=== PATIENT | female | born 1985 | race Caucasian/White ===

== ENCOUNTER 2021-03-10 08:48 | Day surgery (SDC) | payer OTHER ==
[~2021-03-10 08:48] MED LIST: HYDRODIURIL12.5 MG PO; MULTIPLE VITAM1 EAC2 PO; TYLENOL-CODEINE1 TAB PO
== END 2021-03-10 18:40 | disposition home or self-care (01) ==
LOC: CIR.AMB 08:48
PROVIDERS: ATTEND Obstetrics & Gynecology
DX: N84.0 Polyp of corpus uteri (principal); Z20.822 Contact with and (suspected) exposure to COVID-19